=== PATIENT | female | born 1990 | race Caucasian/White ===

== ENCOUNTER 2019-09-22 10:32 | Observation (INO) | payer MEDICAID, SELFPAY ==
[~2019-09-22] VITALS: Ht 167.6 cm; Wt 78.0 kg
[2019-09-22] MEDS ORDERED: PNV11TAB3 PO (11:11)
== END 2019-09-22 13:50 | disposition home or self-care (01) ==
LOC: MLD 10:32
PROVIDERS: ADMIT Obstetrics & Gynecology; ATTEND Obstetrics & Gynecology
DX: O99.283 Endocrine, nutritional and metabolic diseases complicating pregnancy, third trimester (principal); E03.9 Hypothyroidism, unspecified; Z3A.38 38 weeks gestation of pregnancy
CPT/HCPCS: 59025; 76819; 81000; G0378; Q0092; U0003-CS